=== PATIENT | female | born 1975 | race Caucasian/White ===

== ENCOUNTER 2019-06-09 11:30 | Outpatient (RCR) | payer BC ==
[2013-10-18 15:16] VITALS: BP 125/77
[~2019-06-09 11:30] MED LIST: BENADRYL25 M2 PO; XANAX0.25 MG PO
== END 2019-06-09 12:00 | disposition still patient (30) ==
LOC: PT 11:30
DX: S82.035A Nondisplaced transverse fracture of left patella, initial encounter for closed fracture (principal)

== ENCOUNTER → 2024-05-22 | Outpatient (CLI) | payer BC | LOC: MAMMO 08:30 | DX: Z12.31 Encounter for screening mammogram for malignant neoplasm of breast (principal); N63.10 Unspecified lump in the right breast, unspecified quadrant ==